=== PATIENT | female | born 1970 | race Caucasian/White ===

== ENCOUNTER 2017-04-07 21:58 | Emergency (ER) | payer OTHER ==
[~2017-04-07] VITALS: Ht 182.9 cm; Wt 80.3 kg
[~2017-04-07 21:58] MED LIST: CEPH-264 PO; CYCL5TAB PO; DIPH25CA58 PO; FLUT9.9S NS; HYDR-79 PO; OXYM30SP NS; SODI104S NS
[2017-04-07 22:05] VITALS: BP 114/89
[2017-04-07] MEDS ORDERED: ONDANSETRON PF 4 MG/2 ML VIAL. IV ONE (22:45)
[2017-04-07] MEDS ORDERED: IV NORMAL SALINE 500ML 500 ML IV ONE (22:45)
[2017-04-07] MEDS ORDERED: HYDROmorphone PF 1 MG/ML DISP.SYRIN IV ONE (22:45)
[2017-04-07] MEDS ORDERED: ACETAMINOPHEN 325 MG TABLET PO ONE (23:00)
--- NOTE | 2017-04-07 23:18 | RAD ---
CT scan of the head without contrast Clinical History: Difficulty ambulating. History of multiple sclerosis. Technique: Unenhanced, contiguous, 5 mm axial sections were obtained through the head. Exposure: One or more of the following individualized dose reduction techniques were utilized for this examination: 1. Automated exposure control 2. Adjustment of the mA and/or kV according to patient size 3. Use of iterative reconstruction technique Findings: Comparison study is dated 04/05/2016. The ventricles and sulci are within normal limits in size and configuration. No focal area of abnormal attenuation is seen involving the brain parenchyma. No extra-axial fluid collection is seen. No skull fracture is seen. Impression: Negative study. Electronically signed by: Behzad Vasques MD (04/07/2017 11:15 PM)
[2017-04-07 23:22] LABS: BASO # 0.1 x10^3/uL (0.0-0.2); BASO % 1 % (0-3); EOS # 0.2 x10^3/uL (0.0-0.7); EOS % 3 % (0-3); LYMPH # 2.4 x10^3/uL (1.0-4.8); LYMPH % 36 % (24-48); MEAN CORPUSCULAR HEMOGLOBIN 31 pg (25-35); MEAN CORPUSCULAR HGB CONC 34 g/dL (31-37); MEAN CORPUSCULAR VOLUME 91 fL (79-100); MONO # 0.6 x10^3/uL (0.0-1.1); MONO % 9 % (0-9); NEUT # 3.4 x10^3uL (1.8-7.7); NEUT % 52 % (31-73); PLATELET COUNT 170 x10^3/uL (140-400); RED BLOOD COUNT 4.49 x10^6/uL (3.50-5.40); RED CELL DISTRIBUTION WIDTH 14.5 % (11.5-14.5); WHITE BLOOD COUNT 6.6 x10^3/uL (4.0-11.0)
[2017-04-07] MEDS ORDERED: KETOROLAC 30 MG/ML VIAL. IV ONE (23:30)
[2017-04-07 23:31] LABS: CALCIUM 8.9 mg/dL (8.5-10.1); CREATININE 0.9 mg/dL (0.6-1.0); POTASSIUM 3.3 mmol/L (3.5-5.1)
--- NOTE | 2017-04-07 23:35 | PHYS DOC ---
Past History Past Medical History: Other (ms) Past Surgical History: Other Smoking: Cigarettes Alcohol Use: None Drug Use: None Adult General Chief Complaint Chief Complaint: MECHANICAL FALL HPI HPI 46-year-old female presenting to the emergency department today after falling multiple times for home. She has a history of multiple sclerosis however has not followed with a neurologist for approximately 5 years. She reports not taking any medications for her multiple sclerosis. Going down the stairs when she fell down approximate 7 stairs on her buttocks. After falling she has had low back pain. Her pain is moderate nonradiating intermittent and without alleviating factors. Review of systems is negative for chest pain shortness of breath cough fevers chills neck stiffness confusion. All other review of systems is negative unless otherwise noted in history of present illness. ED course: 46-year-old female presenting to the emergency department today with low back pain after a fall. The patient has multiple sclerosis and is not on any medications. Triage vital signs afebrile mildly elevated pulse secondary to pain likely. Physical exam showed 5 out of 5 strength in all extremities. Symmetric facial smile. No focal deficits present. The patient was given IV pain medication and fluids. X-rays of the low back were obtained which showed mild anterior listhesis L2 on L3. No acute fractures noted. Mild scoliosis as well. CT of the head was obtained which was unremarkable. Blood work obtained as well. I discussed the case with Dr. Macias our neurologist who recommended starting the patient on 70 mg of prednisone with a taper over the next 10-14 days. The patient was in discharged home with steroid taper to follow -up with Dr. Oliver in neurology in 4-5 days. Review of Systems Review of Systems SEE ABOVE. Current Medications Current Medications Current Medications Medications (Trade) Dose Ordered Sig/Phuc Start Time Stop Time Status Last Admin Dose Admin Acetaminophen (Tylenol) 650 mg 1X ONCE 04/07/17 23:00 04/07/17 23:01 DC 04/07/17 23:00 650 MG Hydromorphone HCl (Dilaudid) 0.5 mg 1X ONCE 04/07/17 22:45 04/07/17 22:46 DC 04/07/17 22:45 0.5 MG Ketorolac Tromethamine (Toradol) 30 mg 1X ONCE 04/07/17 23:30 04/07/17 23:31 UNV 04/07/17 23:26 30 MG Ondansetron HCl (Zofran) 4 mg 1X ONCE 04/07/17 22:45 04/07/17 22:46 DC 04/07/17 22:45 4 MG Sodium Chloride 500 ml @ 0 mls/hr 1X ONCE 04/07/17 22:45 04/07/17 22:46 DC 04/07/17 22:45 0 MLS/HR Allergies Allergies Allergies Coded Allergies Type Severity Reaction Last Updated Verified levofloxacin Allergy Intermediate rash 04/05/16 Yes Physical Exam Physical Exam Constitutional: Well developed, well nourished, no acute distress, non-toxic appearance. [] HENT: Normocephalic, atraumatic, bilateral external ears normal, oropharynx moist, no oral exudates, nose normal. [] Eyes: PERRLA, EOMI, conjunctiva normal, no discharge. [] Neck: Normal range of motion, no tenderness, supple, no stridor. [] Cardiovascular:Heart rate regular rhythm, no murmur [] Lungs & Thorax: Bilateral breath sounds clear to auscultation [] Abdomen: Bowel sounds normal, soft, no tenderness, no masses, no pulsatile masses. [] Skin: Warm, dry, no erythema, no rash. [] Back: No tenderness, no CVA tenderness. [] Extremities: No tenderness, no cyanosis, no clubbing, ROM intact, no edema. [] Neurologic: Alert and oriented X 3, normal motor function, normal sensory function, no focal deficits noted. [] Psychologic: Affect normal, judgement normal, mood normal. [] Current Patient Data Vital Signs Vital Signs Date Time Temp Pulse Resp B/P (MAP) Pulse Ox O2 Delivery O2 Flow Rate FiO2 04/07/17 22:05 98.4 107 20 98 Room Air Lab Results Laboratory Tests Test 04/07/17 23:10 04/07/17 23:14 White Blood Count 6.6 x10^3/uL (4.0-11.0) Red Blood Count 4.49 x10^6/uL (3.50-5.40) Hemoglobin 14.0 g/dL (12.0-15.5) Hematocrit 41.0 % (36.0-47.0) Mean Corpuscular Volume 91 fL (79-100) Mean Corpuscular Hemoglobin 31 pg (25-35) Mean Corpuscular Hemoglobin Concent 34 g/dL (31-37) Red Cell Distribution Width 14.5 % (11.5-14.5) Platelet Count 170 x10^3/uL (140-400) Neutrophils (%) (Auto) 52 % (31-73) Lymphocytes (%) (Auto) 36 % (24-48) Monocytes (%) (Auto) 9 % (0-9) Eosinophils (%) (Auto) 3 % (0-3) Basophils (%) (Auto) 1 % (0-3) Neutrophils # (Auto) 3.4 x10^3uL (1.8-7.7) Lymphocytes # (Auto) 2.4 x10^3/uL (1.0-4.8) Monocytes # (Auto) 0.6 x10^3/uL (0.0-1.1) Eosinophils # (Auto) 0.2 x10^3/uL (0.0-0.7) Basophils # (Auto) 0.1 x10^3/uL (0.0-0.2) Sodium Level 143 mmol/L (136-145) Potassium Level 3.3 mmol/L (3.5-5.1) L Chloride Level 107 mmol/L (98-107) Carbon Dioxide Level 26 mmol/L (21-32) Anion Gap 10 (6-14) Blood Urea Nitrogen 21 mg/dL (7-20) H Creatinine 0.9 mg/dL (0.6-1.0) Estimated GFR (Cockcroft-Gault) 68.0 Glucose Level 94 mg/dL (70-99) Calcium Level 8.9 mg/dL (8.5-10.1) POC Urine HCG, Qualitative hcg negative (Negative) EKG EKG [] Radiology/Procedures Radiology/Procedures [] Course & Med Decision Making Course & Med Decision Making Pertinent Labs and Imaging studies reviewed. (See chart for details) [] Dragon Disclaimer Dragon Disclaimer This chart was dictated in whole or in part using Voice Recognition software in a busy, high-work load, and often noisy Emergency Department environment. It may contain unintended and wholly unrecognized errors or omissions. Departure Departure: Impression: Primary Impression: Lumbar back pain Additional Impression: Multiple sclerosis Disposition: 01 HOME, SELF-CARE Condition: STABLE Referrals: PCP,BRENNEN (PCP) Harley OLIVER MD Patient Instructions: Low Back Strain with Rehab-SportsMed, Multiple Sclerosis Additional Instructions: Thank you for allowing us to participate in your care today. Followup with our neurologist Dr. oliver in 4-5 days. Call your Primary Doctor tomorrow and inform them of your visit today. If you do not have a primary care provider you can ask for a list of our primary care providers. Return to the emergency department you have any new or concerning findings. This should be evaluated by the primary care physician and any necessary consulting services for continued management within a few days after discharge. Return to emergency room if you have any new or concerning symptoms including but not limited to fever, chills, nausea, vomiting, intractable pain, any new rashes, chest pain, shortness of air, uncontrolled bleeding, difficulty breathing, and/or vision loss. You may have been prescribed medication that can change in your level of thinking and ability to operate machinery. These medications include hydrocodone and Ativan. Also, Benadryl has been known to do this as well. Be sure to check with your pharmacist and ask if the medications you've prescribed can affect your level of consciousness. I recommend not operating heavy machinery or driving while on medication such as these. Scripts Hydrocodone Bit/Acetaminophen (HYDROCODONE-APAP 5-325 ) 1 Each Tablet 1 TAB PO PRN Q6HRS Y for PAIN, #15 TAB 0 Refills Prov: JIMMY MCDONALD MD 04/07/17 Prednisone (PREDNISONE) 20 Mg Tablet 1 TAB PO DAILY, #30 TAB Take 3 tablets once a day for 7 days. On day 8, take 2.5 tablets. On day 9, take 2 tablets. On day 10 take 1.5 tablets. On day 11 take one tablet. On day 12, take half tablet. Prov: JIMMY MCDONALD MD 04/07/17 Problem Qualifiers JIMMY MCDONALD MD Apr 07, 2017 23:35
[2017-04-07] MEDS ORDERED: HYDR-2758 PO (23:52)
[2017-04-07] MEDS ORDERED: PRED20TA PO (23:52)
[2017-04-08] MEDS ORDERED: HYDROcodone/APAP 5/325MG 1 TAB TABLET ONE (00:05)
[2017-04-08] MEDS ORDERED: HYDROcodone/APAP 5/325MG 1 TAB TABLET PO ONE (00:15)
--- NOTE | 2017-04-08 08:14 | RAD ---
Lumbar spine, 3 views, 04/07/2017: History: Low back pain after a fall There is disc space narrowing at L4-5 and L5-S1 with partially radiopaque disc spacers in place at those levels. There is mild scattered marginal spurs in the lumbar spine. There are moderate degenerative changes involving the facet joints in the lower lumbar region. No acute fracture or dislocation is identified. There is a minimal right convexity lumbar scoliosis. IMPRESSION: 1. Degenerative and postsurgical changes as described above. 2. No acute bony abnormality is detected.
== END 2017-04-08 00:19 | disposition home or self-care (01) ==
LOC: ER 21:58
DX: M54.5 Low back pain (principal); G35 Multiple sclerosis; F17.210 Nicotine dependence, cigarettes, uncomplicated; Z88.1 Allergy status to other antibiotic agents; W10.8XXA Fall (on) (from) other stairs and steps, initial encounter; Y93.01 Activity, walking, marching and hiking; Y99.8 Other external cause status; Y92.89 Other specified places as the place of occurrence of the external cause
CPT/HCPCS: 36415; 70450; 72100; 80048; 81025; 85027; 96361; 96374; 96375; 99285; J1170; J1885; J2405; J7040

== ENCOUNTER 2017-04-12 04:18 | Emergency (ER) | payer OTHER ==
[~2017-04-12] VITALS: Ht 182.9 cm; Wt 80.3 kg
[~2017-04-12 04:18] MED LIST changes: +HYDR-2758 PO; +PRED20TA PO
[2017-04-12 04:20] VITALS: BP 144/57
--- NOTE | 2017-04-12 05:11 | PHYS DOC ---
Past History Past Medical History: Other Past Surgical History: Other Smoking: Cigarettes Alcohol Use: None Drug Use: None Adult General Chief Complaint Chief Complaint: MECHANICAL FALL HPI HPI This patient is a pleasant 47-year-old female with a history of MS diagnosed 5 years ago presently neither the care of a neurologist who comes in repeatedly to the ER for repeat falls. She's been seen here for back pain secondary to fall from standing followed from stairs. Denies episode of a fall began when she was in the restroom trying to pull up her underwear and she tripped and fell landing face first on the linoleum. She told the nurse that she fell at 11 PM she told the doctor that she fell at 1 AM. She is very uncomfortable complaining that most of her pain is primarily in her shoulder along her clavicle along the extensive right side of her body. The pain is worse with moving her shoulders arms walking. Although she was able to get herself dressed and drive herself here she complained that she is having so much pain she had finally difficult to move. She denies any chest pain, shortness of breath, abdominal pain, or focal neurologic deficits. She denies any new numbness or tingling other complaints. She is very teary-eyed and complains of a great care to stress that might be contributing to her reasons for falling. Review of Systems Review of Systems Constitutional: Denies fever or chills [] Eyes: Denies change in visual acuity, redness, or eye pain [] HENT: Denies nasal congestion or sore throat [] Respiratory: Denies cough or shortness of breath [] Cardiovascular: No additional information not addressed in HPI [] GI: Denies abdominal pain, nausea, vomiting, bloody stools or diarrhea [] : Denies dysuria or hematuria [] Musculoskeletal: Denies back pain or joint pain [] Integument: Denies rash or skin lesions [] Neurologic: Denies headache, she complains of generalized weakness and anxiety with increased stress at home. Endocrine: Denies polyuria or polydipsia [] Allergies Allergies Allergies Coded Allergies Type Severity Reaction Last Updated Verified levofloxacin Allergy Intermediate rash 04/05/16 Yes Physical Exam Physical Exam She is noted to be tachycardic blood pressure within normal limits, not hypoxic or tachypnea Constitutional: Well developed, well nourished, no acute distress, non-toxic appearance. [] HENT: Normocephalic, atraumatic, bilateral external ears normal, oropharynx moist, no oral exudates, nose normal. [] Eyes: PERRLA, EOMI, conjunctiva normal, no discharge. [] Neck: Normal range of motion, no tenderness, supple, no stridor. [] Cardiovascular:Heart rate regular rhythm, no murmur [] Lungs & Thorax: Bilateral breath sounds clear to auscultation [] Abdomen: Bowel sounds normal, soft, no tenderness, no masses, no pulsatile masses. [] Skin: Warm, dry, no erythema, no rash. [] Back: No tenderness, no CVA tenderness. [] Extremities: Patient indicates tenderness along the lateral and anterior portion of the right shoulder. There is no obvious deformity with exception of a small contusion located over the lateral aspect of the deltoid. She has minimal tenderness to palpation and no soft tissue swelling over the clavicle. She has great range of motion at the clavicle and shoulder. She was able to remove her sweatshirt without issue able stand without issue she does demonstrate some tenderness over the lateral aspect of the hip. Neurologic: Alert and oriented X 3, normal motor function, normal sensory function, no focal deficits noted. [] Psychologic: She is very emotional and cries easily upon examination and trying to extract the next much for her fall. Current Patient Data Vital Signs Vital Signs Date Time Temp Pulse Resp B/P (MAP) Pulse Ox O2 Delivery O2 Flow Rate FiO2 04/12/17 04:20 97.6 112 20 Room Air 98.0 EKG EKG [] Radiology/Procedures Radiology/Procedures [] Course & Med Decision Making Course & Med Decision Making Pertinent Labs and Imaging studies reviewed. (See chart for details) the 2 view x-ray of the clavicle demonstrates no cold fracture normal alignment of the joint space. The three-view demonstrates no occult fracture the joint is well aligned. When offered this great news to the patient she seemed somewhat agitated that she was not receiving pain medication. I discussed with her further my concern was with her recent recurrent falls that narcotics may increase her incidence of following as it is a [employer] depression. When I asked her about her follow-up plan given to her on April [address] MCDONALD 's instructions for her to follow-up with a neurologist Dr. Habib and to complete a course of steroids she gave me some explanation that was nonsensical. She instructions right on her prednisone taper and had missed taking it. She had not called be the neurologist that was willing to see her in follow-up after the case is been presented to Dr. Macias in consultation with her last visit 4 days earlier. Seems to be needing more narcotic pain medications more frequent she comes here. I'm worried that she's been made to develop some drug-seeking behavior. I have offered her Tylenol and anti-inflammatories only since she is at such a risk for falling I would advise that we do not use any thing muscle relaxants as well as this may contribute to her falling as well. He asked for an x-ray of her hip although she emanated into the ER with a normal gait she ambulated down the hallway without issue and her tenderness is over the lateral aspect of the hip with no compressible crepitus the pelvis is stable. I believe and I told her this that x-rays were unnecessary at this time and potentially very problematic as the continued exposure of excess radiation reported increased risk for cancer development. Just before the patient was going to be discharged with a prescription for Tylenol patient became increasingly agitated she isn't receiving any pain medications. She was confused about why she was not getting an emergent MRI. I explained to her that when she was seen 5 days earlier by the physician she could have the MRI done as an outpatient as it was not an emergency. She was confused about how to use her prednisone and claimed that she did not read the prescription and had her had to read it to her. Then she claims she could not afford the medication because she did not insurance and then 10 seconds later she remembered she did have insurance. she came in with multiple reasons and excuses why she needed medical pain medications but when she was asked if she had driven she told our RN and are global security architect that she did not. 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 She clearly had Not told the truth about driving which gives him even more for reason to distrust her reasons for being here that she was looking for narcotics to treat her pain. I will include in my note a discussion about reasons not to provide her narcotics any longer for this dishonest behavior. At one point in time patient also claimed that she had rods and pins placed in her lumbar spine secondary to a back injury. When I reviewed her lumbar spine series back in July 2016 and her lumbar spine. On April 07, 2017 there is no evidence of metallic foreign body within her lower back. Again another reason to distrust her history and concerning presentation of drug-seeking behavior Impression: Shoulder contusion, chest wall contusion, hip contusion. Possible drug-seeking behavior. Miss. information provided to the provider and the staff submarine warfare officer. Disposition: PCP follow-up in the morning for continued evaluation of her MS as well as the management of her chronic pain issues. [] Dragon Disclaimer Dragon Disclaimer This chart was dictated in whole or in part using Voice Recognition software in a busy, high-work load, and often noisy Emergency Department environment. It may contain unintended and wholly unrecognized errors or omissions. Departure Departure: Impression: Primary Impression: Sprain and strain Additional Impressions: Accident due to mechanical fall without injury Contusion Disposition: HOME, SELF-CARE Condition: IMPROVED Referrals: PCP,NO (PCP) Patient Instructions: Contusion, Drug Abuse and Addiction-SportsMed, Fall Prevention and Home Safety Additional Instructions: Please follow-up as already instructed the neurologist. Follow-up instructions and has a follow-up appointment for an MRI please contact completed please use [id number] Tylenol Motrin to treat her pain. I do not believe narcotics are indicated at this time as there are increased risk for falling. Problem Qualifiers VAUGHN CARDONA MD Apr 12, 2017 05:11
--- NOTE | 2017-04-12 07:15 | RAD ---
Right shoulder, 2 views, 04/12/2017: History: Fall, shoulder pain No fracture or dislocation is identified. IMPRESSION: No acute right shoulder abnormality is detected. Right clavicle, 2 views, 04/12/2017: No fracture or bony abnormality is detected. IMPRESSION: Normal right clavicle.
== END 2017-04-12 05:45 | disposition home or self-care (01) ==
LOC: ER 04:18
DX: S40.011A Contusion of right shoulder, initial encounter (principal); S70.00XA Contusion of unspecified hip, initial encounter; S20.219A Contusion of unspecified front wall of thorax, initial encounter; R29.6 Repeated falls; F17.210 Nicotine dependence, cigarettes, uncomplicated; Z88.1 Allergy status to other antibiotic agents; W01.0XXA Fall on same level from slipping, tripping and stumbling without subsequent striking against object, initial encounter; Y93.89 Activity, other specified; Y99.8 Other external cause status; Y92.89 Other specified places as the place of occurrence of the external cause
CPT/HCPCS: 73000; 73030; 99284